=== PATIENT | female | born 1995 | race Caucasian/White ===

== ENCOUNTER 2019-09-02 21:10 | Observation (INO) | payer MEDICAID, SELFPAY ==
[2019-09-02 21:14] VITALS: BP 110/63; PULSE 128; RESP 17; TEMP 37.7; O2SAT 96; BMI 18.8
--- NOTE | 2019-09-02 21:23 | CTR_ITS ---
PROCEDURE INFORMATION: Exam: CT Abdomen And Pelvis With Contrast Exam date and time: 09/02/2019 11:15 PM Age: 24 years old Clinical indication: Abdominal pain; Generalized TECHNIQUE: Imaging protocol: Computed tomography of the abdomen and pelvis with intravenous contrast. Radiation optimization: All CT scans at this facility use at least one of these dose optimization techniques: automated exposure control; mA and/or kV adjustment per patient size (includes targeted exams where dose is matched to clinical indication); or iterative reconstruction. Contrast material: OMNI 300; Contrast volume: 75 ml; Contrast route: INTRAVENOUS (IV); COMPARISON: CT abdomen pelvis w con* [id number] 12/14/2018 4:40 PM RADIATION DOSE METRICS: Total DLP (mGy-cm): 562.81 FINDINGS: Lungs: The lung bases are clear. Liver: Unremarkable. Gallbladder and bile ducts: Prior cholecystectomy, no significant biliary tree dilation. Pancreas: Unremarkable. Spleen: Unremarkable. Adrenals: Unremarkable. Kidneys and ureters: Unremarkable. Stomach and bowel: There are no CT findings to strongly suggest diverticulitis. Appendix: The appendix is possibly identified, and there are no suspicious findings for appendicitis. No pericecal inflammatory changes are seen. Intraperitoneal space: No free air, ascites, or bowel distention. Vasculature: No evidence for abdominal aortic aneurysm. Lymph nodes: No retroperitoneal adenopathy. Bladder: Unremarkable as visualized. Reproductive: Essentially unremarkable for age. Bones/joints: No significant acute finding. Soft tissues: No significant acute finding. CT/CT abdomen pelvis w con* [id number] IMPRESSION: 1. No free air or bowel distention. 2. No CT findings to suggest appendicitis. 3. Other findings discussed above. Radiation Dose CTDIVOL = (mGy): DLP = 562.81 (mGy-cm)
--- NOTE | 2019-09-02 21:23 | CTR_ITS ---
PROCEDURE INFORMATION: Exam: CT Head Without Contrast Exam date and time: 09/02/2019 11:15 PM Age: 24 years old Clinical indication: Altered mental status/memory loss; Other: AMS; Additional info: AMS - PT unable to hold still during exam best images possible TECHNIQUE: Imaging protocol: Computed tomography of the head without contrast. Radiation optimization: All CT scans at this facility use at least one of these dose optimization techniques: automated exposure control; mA and/or kV adjustment per patient size (includes targeted exams where dose is matched to clinical indication); or iterative reconstruction. COMPARISON: No relevant prior studies available. RADIATION DOSE METRICS: Total DLP (mGy-cm): 1611.14 FINDINGS: Brain: Moderate right and mild left cerebral encephalomalacia. Ventricles: Ex vacuo dilatation of the occipital horn of the right lateral ventricle. No hydrocephalus. Bones/joints: No acute fracture. Sinuses: Unremarkable. No acute sinusitis. Mastoid air cells: No significant mastoid effusion. Soft tissues: Unremarkable. CT/CT head wo con* [id number] IMPRESSION: Moderate right and mild left cerebral encephalomalacia. Radiation Dose CTDIVOL = (mGy): DLP = 1611.14 (mGy-cm)
[2019-09-02] MEDS: haloperidol inj 5 mg/mL INJ 1 mL IM (21:36)
[2019-09-02] MEDS: sodium chloride 0.9% 1,000 ML 999 ML IV (22:53)
[2019-09-02] MEDS: morphine 4 mg/mL SDV 1 mL IVP (22:55)
[2019-09-02 22:58] VITALS: BP 92/56; PULSE 84; RESP 18; O2SAT 95
[2019-09-02 23:00] LABS: Basophils % 0.1 %; Hematocrit 33.3 % (37.0-47.0); Hemoglobin 11.1 g/dL (11.5-15.3); Lymphocytes % 9.6 %; Mean Corpuscular HGB Conc 33.3 g/dL (30.0-36.0); Mean Corpuscular Hemoglobin 30.7 pg (28.0-34.0); Monocytes # 0.8 10^3/uL (0.2-0.9); Monocytes % 8.1 %; Neutrophils # 8.23 10^3/uL (1.8-7.7); Nucleated Red Blood Cells % 0 %; Platelet Count 237 10^3/cmm (130-400); Red Blood Count 3.62 10^6/uL (4.1-5.3)
[2019-09-02 23:08] LABS: HCG, Serum Qual Negative (Negative)
[2019-09-02 23:13] LABS: Lactic Sepsis W/Reflex 1.9 mmol/L (0.5-2.2)
[2019-09-02 23:14] LABS: Alanine Aminotransferase 32 U/L (0-33); Albumin Level 4.2 g/dL (3.5-5.2); Alkaline Phosphatase 59 IU/L (35-105); Anion Gap 15.1 (5-19); Aspartate Amino Transferase 71 U/L (0-32); Blood Urea Nitrogen 10 mg/dL (6-20); Calcium 9.2 mg/dL (8.5-10.5); Carbon Dioxide 25 mmol/L (22-29); Chloride 98 mmol/L (98-107); Globulin 2.4 g/dL (1.3-4.6); Glomerular Filtration Rate 89.7 mL/min (90-130); Glucose 98 mg/dL (65-115); Lipase 13 U/L (13-60); Osmolality Calculated 276 mOsm/kg (285-295); Potassium 3.1 mmol/L (3.5-5.1); Sodium 135 mmol/L (136-145); Total Bilirubin 0.3 mg/dL (0.15-1.2); Total Protein 6.6 g/dL (6.6-8.7)
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
[2019-09-02 23:38] LABS: Creatine Phosphokinase 7818 U/L (26-192)
[2019-09-02] MEDS: iohexol 300 mg/mL 100 mL Btl IV (23:47)
--- NOTE | 2019-09-02 23:53 | PC.NURSE ---
Pt. to CT and back, via stretcher.
[2019-09-03] VITALS (8 sets, daily range): BP systolic 96–122; BP diastolic 53–66; PULSE 71–128; RESP 16–20; TEMP 36.6–37.1; O2SAT 93–98
[2019-09-03 00:15] LABS: Magnesium 1.7 mg/dL (1.7-2.3)
--- NOTE | 2019-09-03 01:17 | XR_ITS ---
WS: [id number] Portable AP upright chest, 09/03/2019 Clinical Data: ams Comparison: Portable chest, 10/03/2015. Findings: No nodules, masses or effusions are seen. The heart is normal. The pulmonary vascularity is not increased. No pneumonia or pneumothorax is seen. The patient's chin obscures detail over the ap ices. XR/XR chest 1V portable [id number] Impression: Negative chest.
[2019-09-03] MEDS: sodium chloride 0.9% 1,000 ML 100 ML IV (02:21)
[2019-09-03] MEDS: potassium chloride premix 40 MEQ/100 ML PREMIX 25 MEQ IV (02:22)
[2019-09-03] MEDS: haloperidol inj 5 mg/mL INJ 1 mL 2.5 MG IM ×2 (02:23→02:24)
[2019-09-03] MEDS: LORazepam 2 mg/mL INJ 1 mL 1 MG IVP (02:24)
[2019-09-03 03:04] LABS: Acetaminophen < 5.0 ug/mL (10-30); Alcohol Level < 10 mg/dL (0-10); Salicylate < 0.3 mg/dL (3-10)
[2019-09-03 03:29] LABS: Bacteria Urine 1+; Bilirubin Urine Neg (NEGATIVE); Blood Urine Neg (Negative); Glucose Urine UA Norm (Normal); Ketones Urine 1+ (Negative); Leukocyte Esterase Urine Negative (Negative); Nitrate Urine Negative (Negative); Protein Urine Neg (Negative); RBC Urine RARE /hpf (0-2); Squamous Epithelial Cell Urine 0-4 (0-5); Urine Appearance Clear (CLEAR); Urine Color Yellow (Yellow); Urobilinogen Urine Norm (Negative); WBC Urine 0-4 /hpf (0-5); pH Urine 6.5 (5-7)
[2019-09-03 03:31] LABS: Amphetamines Screen Urine Negative (Negative); Barbiturates Screen Urine Negative (Negative); Benzodiazepines Screen Urine Negative (Negative); Cocaine Screen Urine Negative (Negative); Opiate Screen Urine Positive (Negative); PCP Screen Urine Negative (Negative); THC Screen Urine Positive (Negative)
[2019-09-03] MEDS: sodium chloride 0.9% 1,000 ML 999 ML IV (05:00)
[2019-09-03] MEDS: sodium chloride 0.9% 1,000 ML 150 ML IV ×2 (06:32→13:26)
[2019-09-03] MEDS: haloperidol inj 5 mg/mL INJ 1 mL IM (08:49)
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
[2019-09-03] MEDS: ziprasidone 20 mg/mL SDV 10 MG IM (09:19)
--- NOTE | 2019-09-03 10:15 | PC.CHAP ---
Pastoral Care Encounter/Spiritual Assessment Type of Contact [] Declined industrial maintenance mechanic visit [] Patient/Family/Request visit [] Outpatient visit [] Follow-up visit [] Physician referral [] Code/Alert [x] Routine visit [] Staff referral [] Actively dying [] Patient sleeping [] Family support [] [] Out of room [] Palliative care [] [] Receiving care in room [] Pre-surgical visit [] Trauma [] Long length of stay [] ICU visit [] Other: Relational/Emotional Strength [] Patient feels connected with others/family/visitors/staff [] Distress [] Loneliness/isolation [] Abandonment Spirituality of Patient [] Person of Soni [] Attends Adventism of their Soni [] Believes in Prayer [] Reads Bible or Uatsdin materials [] There are Spiritual issues to be addressed Saxophone Assembler Interventions [] Prayer [] Active listening [] Non-anxious presence [] Spiritual/emotional support [] Crisis/trauma care [] Spiritual counseling [] Bereavement support [] Provided bereavement packet [] Provided Bible/devotional materials [] Provided toy/stuffed animal, coloring book to patient or family member [] Provided Communion [] Anointing/[place] [] Salvation [x] Completed spiritual assessment [] Other: Impact on Illness or Injury [] Angry [] Fearful [] Anxious [] Often cries [] Exhaustion [] Unable to work [] Unable to attend taoist [] Unable to walk/stand [] Unable to read [] Unable to drive [] Unable to eat/drink [] Unable to sleep [] Unable to be with family [] Patient intubated [] Other: Summary Patient has mother setting with her to assist. Handicapped, screamer. Staff trying to calm her Time spent with patient
[2019-09-03 10:18] LABS: Basophils % 0.1 %; Eosinophils % 0.1 %; Hematocrit 29.8 % (37.0-47.0); Hemoglobin 9.6 g/dL (11.5-15.3); Lymphocytes # 1.1 10^3/uL (0.8-4.8); Lymphocytes % 14.4 %; Mean Corpuscular HGB Conc 32.2 g/dL (30.0-36.0); Mean Corpuscular Hemoglobin 30.9 pg (28.0-34.0); Mean Corpuscular Volume 95.8 fL (81-99); Mean Platelet Volume 9.8 fL (7.4-10.4); Monocytes # 0.5 10^3/uL (0.2-0.9); Monocytes % 6.8 %; Neutrophils # 5.77 10^3/uL (1.8-7.7); Neutrophils % 78.3 %; Nucleated Red Blood Cells % 0 %; Platelet Count 193 10^3/cmm (130-400); Red Blood Count 3.11 10^6/uL (4.1-5.3); Red Cell Distribution Width 12.3 % (12.1-15.1); White Blood Count 7.4 10^3/uL (4.0-10.0)
[2019-09-03 10:54] LABS: Anion Gap 12.5 (5-19); Blood Urea Nitrogen 4 mg/dL (6-20); CKMB 4.6 ng/mL (0-5.34); Calcium 8.1 mg/dL (8.5-10.5); Carbon Dioxide 23 mmol/L (22-29); Chloride 106 mmol/L (98-107); Glomerular Filtration Rate 154.3 mL/min (90-130); Glucose 104 mg/dL (65-115); Osmolality Calculated 282 mOsm/kg (285-295); Potassium 3.5 mmol/L (3.5-5.1); Sodium 138 mmol/L (136-145)
[2019-09-03 11:28] LABS: Creatine Phosphokinase 8848 U/L (26-192)
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
[2019-09-03] MEDS: naltrexone hcl 50 mg Tablet PO ×2 (16:37→21:56)
[2019-09-03] MEDS: scopolamine 1.5 Patch 1 PATCH TRANSDERMA (16:37)
[2019-09-03] MEDS: lamoTRIgine 100 mg Tablet 150 MG PO (17:56)
[2019-09-03] MEDS: doxycycline 100 mg Tablet PO (17:56)
[2019-09-03] MEDS: docusate sodium 100 mg Capsule PO (17:57)
--- NOTE | 2019-09-03 19:26 | PC.NURSE ---
Medication reconciliation performed. Patient's mother reports using OTC CBD oil as needed. This wasn't found in the medications to add to the med profile. I spoke with Dr. Barlow and informed her of this. She verbalizes understanding and requests for patient's mother to bring in medications for administration if needed and further review. I spoke with patient's mother and informed her of this. She states she will have her family bring the medications to the hospital for review.
--- NOTE | 2019-09-03 21:45 | PC.NURSE ---
PATIENT WAS VISIBLY UPSET, SCREAMING, KICKING AND TRYING TO BITE, MOM ASKED TO NOT DO VITALS AT THIS TIME DUE TO HER ALREADY BEING UPSET AND HER AFRAID IT WOULD MAKE IT WORSE.
[2019-09-04] VITALS: BP 98/62; PULSE 71; RESP 16; TEMP 37; O2SAT 98
[2019-09-04] MEDS: sodium chloride 0.9% 1,000 ML 150 ML IV (03:31)
[2019-09-04 04:00] VITALS: BP 101/66; PULSE 74; RESP 17; TEMP 37.2; O2SAT 98
[2019-09-04 07:13] VITALS: BP 122/70
[2019-09-04 07:15] VITALS: BP 101/66; PULSE 74; RESP 17; TEMP 37.2
[2019-09-04 07:27] LABS: Blood Urea Nitrogen 3 mg/dL (6-20); Calcium 8.9 mg/dL (8.5-10.5); Carbon Dioxide 24 mmol/L (22-29); Chloride 109 mmol/L (98-107); Glomerular Filtration Rate 154.3 mL/min (90-130); Glucose 92 mg/dL (65-115); Osmolality Calculated 295 mOsm/kg (285-295); Sodium 145 mmol/L (136-145)
[2019-09-04 07:30] LABS: CKMB 2.9 ng/mL (0-5.34)
[2019-09-04 07:50] LABS: Basophils % 0.2 %; Eosinophils % 0.7 %; Hematocrit 33.7 % (37.0-47.0); Hemoglobin 10.9 g/dL (11.5-15.3); Lymphocytes # 2.5 10^3/uL (0.8-4.8); Lymphocytes % 46.9 %; Mean Corpuscular HGB Conc 32.3 g/dL (30.0-36.0); Mean Corpuscular Hemoglobin 30.8 pg (28.0-34.0); Mean Corpuscular Volume 95.2 fL (81-99); Mean Platelet Volume 10.4 fL (7.4-10.4); Monocytes # 0.4 10^3/uL (0.2-0.9); Monocytes % 7.4 %; Neutrophils # 2.39 10^3/uL (1.8-7.7); Neutrophils % 44.6 %; Nucleated Red Blood Cells % 0 %; Platelet Count 227 10^3/cmm (130-400); Red Blood Count 3.54 10^6/uL (4.1-5.3); Red Cell Distribution Width 12.3 % (12.1-15.1); White Blood Count 5.4 10^3/uL (4.0-10.0)
[2019-09-04] MEDS: docusate sodium 100 mg Capsule PO ×2 (07:51)
[2019-09-04] MEDS: paliperidone ER 3 mg Tablet 9 MG PO (07:53)
[2019-09-04] MEDS: polyethylene glycol 3350 Pkt 17 gm PO (07:53)
[2019-09-04] MEDS: doxycycline 100 mg Tablet PO (07:54)
[2019-09-04] MEDS: naltrexone hcl 50 mg Tablet PO (07:54)
[2019-09-04 08:02] LABS: Creatine Phosphokinase 6888 U/L (26-192)
--- NOTE | 2019-09-04 09:59 | PC.CHAP ---
Pastoral Care Encounter/Spiritual Assessment Type of Contact [] Declined architecture consultant visit [] Patient/Family/Request visit [] Outpatient visit [] Follow-up visit [] Physician referral [] Code/Alert [] Routine visit [] Staff referral [] Actively dying [] Patient sleeping [] Family support [] [] Out of room [] Palliative care [] [] Receiving care in room [] Pre-surgical visit [] Trauma [] Long length of stay [] ICU visit [X] Other:COVID PT. SKIPPED VISIT PER DIRECTIVE Relational/Emotional Strength [] Patient feels connected with others/family/visitors/staff [] Distress [] Loneliness/isolation [] Abandonment Spirituality of Patient [] Person of Soni [] Attends Pentecostal of their Soni [] Believes in Prayer [] Reads Bible or Jainism materials [] There are Spiritual issues to be addressed Nurse Healthcare Manager Interventions [] Prayer [] Active listening [] Non-anxious presence [] Spiritual/emotional support [] Crisis/trauma care [] Spiritual counseling [] Bereavement support [] Provided bereavement packet [] Provided Bible/devotional materials [] Provided toy/stuffed animal, coloring book to patient or family member [] Provided Communion [] Anointing/[place] [] Salvation [] Completed spiritual assessment [] Other: Impact on Illness or Injury [] Angry [] Fearful [] Anxious [] Often cries [] Exhaustion [] Unable to work [] Unable to attend caodaism [] Unable to walk/stand [] Unable to read [] Unable to drive [] Unable to eat/drink [] Unable to sleep [] Unable to be with family [] Patient intubated [] Other: Summary Time spent with patient
--- NOTE | 2019-09-04 11:25 | PM.DCS ---
Discharge Providers Date of Admission: 09/03/19 03:46 Date of Discharge: September 04, 2019 Attending Provider at Admission: Noé Luna Attending Provider at Discharge: Margaret Barlow DO Diagnoses at Discharge Discharge Diagnosis (1) Traumatic brain injury: Status: Acute (2) Seizures: Status: Acute (3) Agitation: Status: Acute (4) Severe intellectual disability: Status: Acute Reason for Visit Reason for Visit: ams/ combative/ possible dehydration Hospital Course Hospital Course: Patient was admitted for acute combativeness and concern for elevated CK. She was monitored on observation and given IVF. She did require Geodon and Haldol which helped with her agitation. She received IVF and her CK trended down, however it remained significantly elevated. However patient is asymptomatic and no concern for muscle aches or pain. Believe CK elevation is due to patients physical demands over the past couple of days and requiring restraints at home to ensure that patient did not injure herself or anyone else. Patient was up and walking around the room listening to her music on date of discharge and mother noted that patient was at her baseline. Discussed the elevation in CK and the recommendation to have it rechecked in 7 days. Patient tolerating regular diet with no abdominal pain, no nausea. Discussed follow up plans and plan for discharge today. Physical Exam Const: COMMON NORMALS: no acute distress EXAM LIMITATIONS: behavioral limitations GENERAL APPEARANCE: cooperative and comfortable HENMT: COMMON NORMALS: atraumatic HEAD & SCALP: atraumatic Chest: COMMONS NORMALS: normal inspection of the chest Resp: COMMON NORMALS: normal respiratory effort, No retractions and No use of accessory muscles EFFORT & INSPECTION: Yes symmetric chest movement and No respiratory distress Cardio: OTHER: normal peripheral perfusion Psych: OTHER: Awake and ambulating through the room, smiling and listening to music. Chronic L Erb's palsy Discharge Data Data Completed and Pending: Completed Studies During Hospitalization Category Date Time Status CT abdomen pelvis w con* [id number] Stat Cat Scan 09/02/19 21:[address] head wo con* [id number] Stat Cat Scan 09/02/19 21:23 Completed XR chest 1V sharad ble [id number] Stat Exams 09/03/19 01:17 Completed Pending at discharge Category Date Time Status Blood Culture Sta t Lab 09/02/19 22:38 Results Lamotrigine (Lami ctal) Level Routin e Lab 09/03/19 10:07 Received Miscellaneous Angelica t Routine Lab 09/03/19 03:09 Received Labs from last 24 hours 09/04/19 09/04/19 09/04/19 06:47 06:47 06:47 WBC 5.4 RBC 3.54 L Hgb 10.9 L Hct 33.7 L MCV 95.2 MCH 30.8 MCHC 32.3 RDW 12.3 Plt Count 227 MPV 10.4 Neut % (Auto) 44.6 Lymph % (Auto) 46.9 [place] % (Auto) 7.4 Eos % (Auto) 0.7 Baso % (Auto) 0.2 Neut # (Auto) 2.39 Lymph # (Auto) 2.5 [place] # (Auto) 0.4 Eos # (Auto) 0.0 Baso # (Auto) 0.0 Nucleated RBC % (a uto) 0 Nucleated RBCs # 0.0 Sodium 145 Potassium 4.0 Chloride 109 H Carbon Dioxide 24 Anion Gap 16.0 BUN 3 L Creatinine 0.5 GFR Calculation 154.3 H Glucose 92 Calculated Osmolal ity 295 Calcium 8.9 Creatine Kinase 6888 H* CK-MB (CK-2) 2.9 CK-MB (CK-2) Rel I ndex 09/03/19 10:07 WBC RBC Hgb Hct MCV MCH MCHC RDW Plt Count MPV Neut % (Auto) Lymph % (Auto) [place] % (Auto) Eos % (Auto) Baso % (Auto) Neut # (Auto) Lymph # (Auto) [place] # (Auto) Eos # (Auto) Baso # (Auto) Nucleated RBC % (a uto) Nucleated RBCs # Sodium Potassium Chloride Carbon Dioxide Anion Gap BUN Creatinine GFR Calculation Glucose Calculated Osmolal ity Calcium Creatine Kinase 8848 H* CK-MB (CK-2) CK-MB (CK-2) Rel I ndex Vitals: Last Vital Signs Temp 98.9 F 09/04/19 07:15 Pulse 74 09/04/19 07:15 Resp 17 09/04/19 07:15 BP 101/66 09/04/19 07:15 Pulse Ox 98 09/04/19 04:00 Discharge Plan Discharge Patient Disposition: Home, Self-Care Condition: Stable Prescriptions: Continued buspirone 15 mg Tablet 15 mg PO TID RF: 0 risperidone 0.5 mg Tablet,Disintegrating 0.5 mg PO BID PRN (Reason: Agitation and Aggression) RF: 0 sodium phosphates 19-7 gram/118 mL Enema 133 ml ID DAILY PRN (Reason: Constipation) RF: 0 doxycycline hyclate 100 mg Capsule 100 mg PO BID RF: 0 oxcarbazepine 300 mg/5 mL (60 mg/mL) Suspension 600 mg PO BID RF: 0 lamotrigine 150 mg Tablet 150 mg PO BID RF: 0 vortioxetine 10 mg Tablet 10 mg PO DAILY RF: 0 lactulose 10 gram/15 mL Solution 15 ml PO QID PRN (Reason: Constipation) RF: 0 ClearLax 17 gram/dose Powder 17 g PO DAILY RF: 0 Cyclafem 1/35 (28) 1-35 mg-mcg Tablet 1 tab PO DAILY RF: 0 ondansetron 8 mg Tablet,Disintegrating 8 mg PO Q8H PRN (Reason: Nausea, Vomiting) RF: 0 naltrexone 50 mg Tablet 50 mg PO TID RF: 0 paliperidone 9 mg tablet extended release 24hr 9 mg PO DAILY RF: 0 lubiprostone 8 mcg Capsule 8 mcg PO BID RF: 0 Deplin (algal oil) 15-90.314 mg Capsule 1 cap PO DAILY RF: 0 scopolamine base 1 mg over 3 days Patch 3 Day 1 patch TRANSDERMAL Q3D RF: 0 docusate sodium 100 mg Capsule 100 mg PO BID RF: 0 Diastat 2.5 mg Kit 10 mg ID Q12H PRN (Reason: Seizures) RF: 0 cetirizine 10 mg Tablet 10 mg PO DAILY PRN (Reason: Rhinitis) RF: 0 Midol Complete 500-60-15 mg Tablet 2 tab PO Q6H PRN (Reason: Menstrual Cramping) RF: 0 Discharge Orders: Discharge Order (Routine); Ordered 09/04/19 Ordered By: Margaret Barlow Referrals: Jeremy Serra [Referring] - 1-3 days (Will need recheck CK and BMP in 5-7 days. Asymptomatic elevation of CK, IVF and observation) Discharge Diet: Advance as tolerated and Usual diet Discharge Activity: Increase activity as tolerated Activity Restrictions/Additional Instructions: Asymptomatic elevation in Creatinine Kinase. No changes or adjustments at this time. Please continue to encourage adequate water intake. If any type of muscle pain is reported call your physician or bring patient in for further evaluation. Would recommend repeat CK and chemistry panel, blood work, in 5-[address] Serra. Continue to increase activity as tolerated. Call your physician or present to the ED for any acute illness or concerns. Discharge Attestations Time Spent in Discharge Care*: greater than 30 min Specific Discharge Activities: Specific discharge activities: educating and/or supporting family/caregiver and documenting/other paperwork Quality Metrics Clinical Quality Measures During this hospital stay, did patient experience: None Coding Level of Care Code Acute Survey Statistician for Nirav Fwd Diagnoses Traumatic brain injury S06.9X9A Seizures R56.9 Agitation R45.1 Severe intellectual disability F72
[2019-09-04 12:00] VITALS: BP 101/66; PULSE 74; RESP 17; TEMP 37.2
[2019-09-04 13:10] VITALS: BP 101/66; PULSE 74; RESP 17; TEMP 37.2
[2019-09-07 21:25] LABS: Lamotrigine (Lamictal) Level 4.4 mcg/mL (4.0-18.0)
== END 2019-09-04 13:11 | disposition home or self-care (01) ==
LOC: ER 21:29 → MEDSURG 09-03 03:55
PROVIDERS: Emergency Medicine; Admitting Provider Internal Medicine; Visit Provider Family Medicine
DX: R74.8 Abnormal levels of other serum enzymes (principal); R45.1 Restlessness and agitation; R56.9 Unspecified convulsions; Z87.820 Personal history of traumatic brain injury; F72 Severe intellectual disabilities
CPT/HCPCS: 12345; 36415; 70450; 71045; 74177; 80048; 80053; 80175; 80306; 80307; 80349; 81001; 82550; 82553; 83605; 83690; 83735; 84703; 85025; 87040; 96361; 96365; 96366; 96372; 96375; 99284; 99285; G0378; J1630; J2060; J2270; J3480; J3486; J7030; Q9967

== ENCOUNTER 2019-09-08 22:17 | Emergency (ER) | payer MEDICAID, SELFPAY ==
[2019-09-08 22:33] VITALS: BMI 19.8
[2019-09-08 23:01] VITALS: BP 134/72; PULSE 88; RESP 22; O2SAT 97
--- NOTE | 2019-09-08 23:23 | ED_ITS ---
HPI - Nausea/Vomiting/Diarrhea General: Chief complaint: Nausea/Vomiting/Diarrhea Stated complaint: DEHYDRATION Time Seen by Provider: 09/08/19 22:33 Source: family and EMS Mode of arrival: EMS Limitations: physical limitation History of Present Illness: HPI Narrative: 24-year-old female with a history of special needs who is here with a caregiver who is giving all history. Chandan martinez has had issues with vomiting the past and caregiver states she has had nausea and vomiting over the last 2 to 3 days. She states she is also had diarrhea. She has had decreased urination and she believes she is dehydrated. Patient's been afebrile at home and has not complained to act like she been in pain per caregiver. Denies any worsening improving factors. Associated nausea: Yes Associated symtoms: Reports nausea; Denies chest pain, dysuria or headache(s) Review of Systems Const: Denies: fever(s), chills, body aches or change in appetite Eyes: Denies: blurry vision or eye discomfort ENMT: Denies: throat pain or dental pain Card: Denies: chest pain Resp: Denies: dyspnea GI: Reports: nausea, vomiting and diarrhea : Denies: dysuria Musc: Denies: neck pain or back pain Skin/Breast: Denies: rash Neuro: Denies: headache(s) Psych: Denies: depression Daniele/Lymph: Denies: easy bruising All/Imm: Denies: urticaria PFSH ED PFSH: Medical History (Updated 09/09/19 @ 02:27 by Freddy Gallegos MD) Developmental delay Seizures Traumatic brain injury Surgical History (Updated 09/03/19 @ 09:43 by Margaret Barlow DO) History of laparoscopic cholecystectomy Physical Exam Const: COMMON NORMALS: no acute distress and healthy appearing HENMT: COMMON NORMALS: normocephalic and atraumatic HEAD & SCALP: normocephalic and atraumatic Eye: COMMON NORMALS: Equal, round and reactive pupils present and EOMs intact bilaterally PUPIL: Yes Equal, round and reactive pupils present Neck/C-Spine: COMMON NORMALS: full ROM and supple Chest: COMMONS NORMALS: normal inspection of the chest and normal palpation of entire chest wall Resp: COMMON NORMALS: normal respiratory effort, No retractions, No use of accessory muscles and clear to auscultation bilaterally AUSCULTATION: clear to auscultation bilaterally Cardio: COMMON NORMALS: regular rate, regular rhythm and No murmurs present (Cardio) RATE: regular rate RHYTHM: regular rhythm GI: COMMON NORMALS: Normal to inspection, nondistended, normoactive bowel sounds present, Soft to palpation, non-tender and no masses PALPATION: Yes Soft to palpation Extremity: COMMON NORMALS: normal to inspection and full ROM Neuro: COMMON NORMALS: moves all extremities and no focal motor deficits Psych: COMMON NORMALS: mental status grossly normal, Normal thought process present and cooperative THOUGHT PROCESS: Normal thought process present Skin: COMMON NORMALS: no rashes or lesions noted and no wounds GENERAL SKIN EXAM: no rashes or lesions noted MDM - Nausea/Vomiting/Diarrhea MDM Narrative: Medical decision making narrative: Patient presents with vomiting along with dehydration. Patient lab work here is normal and she is stable for discharge. Patient has Zofran at home and patient was given IV fluids here patient is stable for discharge and return if worsening. They understand and agree to plan. Lab Data: Labs: Lab Results 09/08/19 09/08/19 09/09/19 Range/Units 01:12 01:18 01:10 WBC 4.4 (4.0-10.0) 10^3/ uL RBC 3.25 L (4.1-5.3) 10^6/u L Hgb 10.1 L (11.5-15.3) g/dL Hct 31.0 L (37.0-47.0) % MCV 95.4 (81-99) fL MCH 31.1 (28.0-34.0) pg MCHC 32.6 (30.0-36.0) g/dL RDW 12.4 (12.1-15.1) % Plt Count 300 (130-400) 10^3/c mm MPV 9.9 (7.4-10.4) fL Neut % (Auto) 61.7 % Lymph % (Auto) 33.3 % [place] % (Auto) 4.6 % Eos % (Auto) 0.2 % Baso % (Auto) 0.2 % Neut # (Auto) 2.68 (1.8-7.7) 10^3/u L Lymph # (Auto) 1.5 (0.8-4.8) 10^3/u L [place] # (Auto) 0.2 (0.2-0.9) 10^3/u L Eos # (Auto) 0.0 (0.0-0.8) 10^3/u L Baso # (Auto) 0.0 (0.0-0.1) 10^3/u L Nucleated RBC % (a uto) 0 % Nucleated RBCs # 0.0 /100WBC Sodium 136 (136-145) mmol/L Potassium 4.1 (3.5-5.1) mmol/L Chloride 101 (98-107) mmol/L Carbon Dioxide 26 (22-29) mmol/L Anion Gap 13.1 (5-19) BUN 5 L (6-20) mg/dL Creatinine 0.6 (0.5-0.9) mg/dL GFR Calculation 125.0 (90-130) mL/min Glucose 106 (65-115) mg/dL Calculated Osmolal ity 278 L (285-295) mOsm/k g Calcium 8.6 (8.5-10.5) mg/dL Total Bilirubin 0.3 (0.15-1.2) mg/dL AST 30 (0-32) U/L ALT 35 H (0-33) U/L Alkaline Phosphata se 57 (35-105) IU/L Creatine Kinase 687 H* (26-192) U/L Total Protein 6.8 (6.6-8.7) g/dL Albumin 4.0 (3.5-5.2) g/dL Globulin 2.8 (1.3-4.6) g/dL HCG, Qual Negative (Negative) Urine Color (Yellow) Urine Appearance (CLEAR) Urine pH (5-7) Ur Specific Gravit y (1.005-1.030) Urine Protein (Negative) Urine Glucose (UA) (Normal) Urine Ketones (Negative) Urine Blood (Negative) Urine Nitrate (Negative) Urine Bilirubin (NEGATIVE) Urine Urobilinogen (Negative) mg/dL Ur Leukocyte [place]yan[place] ase (Negative) Urine RBC (0-2) /hpf Urine WBC (0-5) /hpf Ur Squamous Epith Cells (0-5) Amorphous Sediment Urine Bacteria (NONE) 09/09/19 Range/Units 01:10 WBC (4.0-10.0) 10^3/ uL RBC (4.1-5.3) 10^6/u L Hgb (11.5-15.3) g/dL Hct (37.0-47.0) % MCV (81-99) fL MCH (28.0-34.0) pg MCHC (30.0-36.0) g/dL RDW (12.1-15.1) % Plt Count (130-400) 10^3/c mm MPV (7.4-10.4) fL Neut % (Auto) % Lymph % (Auto) % [place] % (Auto) % Eos % (Auto) % Baso % (Auto) % Neut # (Auto) (1.8-7.7) 10^3/u L Lymph # (Auto) (0.8-4.8) 10^3/u L [place] # (Auto) (0.2-0.9) 10^3/u L Eos # (Auto) (0.0-0.8) 10^3/u L Baso # (Auto) (0.0-0.1) 10^3/u L Nucleated RBC % (a uto) % Nucleated RBCs # /100WBC Sodium (136-145) mmol/L Potassium (3.5-5.1) mmol/L Chloride (98-107) mmol/L Carbon Dioxide (22-29) mmol/L Anion Gap (5-19) BUN (6-20) mg/dL Creatinine (0.5-0.9) mg/dL GFR Calculation (90-130) mL/min Glucose (65-115) mg/dL Calculated Osmolal ity (285-295) mOsm/k g Calcium (8.5-10.5) mg/dL Total Bilirubin (0.15-1.2) mg/dL AST (0-32) U/L ALT (0-33) U/L Alkaline Phosphata se (35-105) IU/L Creatine Kinase (26-192) U/L Total Protein (6.6-8.7) g/dL Albumin (3.5-5.2) g/dL Globulin (1.3-4.6) g/dL HCG, Qual (Negative) Urine Color Yellow (Yellow) Urine Appearance Clear (CLEAR) Urine pH 8 H (5-7) Ur Specific Gravit y 1.010 (1.005-1.030) Urine Protein Neg (Negative) Urine Glucose (UA) Norm (Normal) Urine Ketones 1+ H (Negative) Urine Blood Neg (Negative) Urine Nitrate Negative (Negative) Urine Bilirubin Neg (NEGATIVE) Urine Urobilinogen Norm (Negative) mg/dL Ur Leukocyte [place] ase Negative (Negative) Urine RBC None (0-2) /hpf Urine WBC None (0-5) /hpf Ur Squamous Epith Cells None (0-5) Amorphous Sediment Not Reportable Urine Bacteria None (NONE) Discharge Plan Discharge Patient Disposition: Home, Self-Care Clinical Impression: Vomiting Qualifiers: Vomiting type: unspecified Vomiting Intractability: non-intractable Nausea presence: with nausea Qualified Code(s): R11.2 - Nausea with vomiting, unspecified Condition: Stable Prescriptions: No Action buspirone 15 mg Tablet 15 mg PO TID RF: 0 risperidone 0.5 mg Tablet,Disintegrating 0.5 mg PO BID PRN (Reason: Agitation and Aggression) RF: 0 sodium phosphates 19-7 gram/118 mL Enema 133 ml ME DAILY PRN (Reason: Constipation) RF: 0 doxycycline hyclate 100 mg Capsule 100 mg PO BID RF: 0 oxcarbazepine 300 mg/5 mL (60 mg/mL) Suspension 600 mg PO BID RF: 0 lamotrigine 150 mg Tablet 150 mg PO BID RF: 0 vortioxetine 10 mg Tablet 10 mg PO DAILY RF: 0 lactulose 10 gram/15 mL Solution 15 ml PO QID PRN (Reason: Constipation) RF: 0 ClearLax 17 gram/dose Powder 17 g PO DAILY RF: 0 Cyclafem 1/35 (28) 1-35 mg-mcg Tablet 1 tab PO DAILY RF: 0 ondansetron 8 mg Tablet,Disintegrating 8 mg PO Q8H PRN (Reason: Nausea, Vomiting) RF: 0 naltrexone 50 mg Tablet 50 mg PO TID RF: 0 paliperidone 9 mg tablet extended release 24hr 9 mg PO DAILY RF: 0 lubiprostone 8 mcg Capsule 8 mcg PO BID RF: 0 Deplin (algal oil) 15-90.314 mg Capsule 1 cap PO DAILY RF: 0 scopolamine base 1 mg over 3 days Patch 3 Day 1 patch TRANSDERMAL Q3D RF: 0 docusate sodium 100 mg Capsule 100 mg PO BID RF: 0 Diastat 2.5 mg Kit 10 mg ME Q12H PRN (Reason: Seizures) RF: 0 cetirizine 10 mg Tablet 10 mg PO DAILY PRN (Reason: Rhinitis) RF: 0 Midol Complete 500-60-15 mg Tablet 2 tab PO Q6H PRN (Reason: Menstrual Cramping) RF: 0 Discharge Orders: Discharge Order (Routine); Ordered 09/09/19 Ordered By: Freddy Gallegos Discharge Diet: Advance as tolerated Discharge Activity: Resume usual activity Patient Instructions: Acute Nausea and Vomiting (ED) Coding Level of Care Code ED Engagement Lead for Erickg Fwd Exam Comprehensive
[2019-09-08] MEDS: LORazepam 2 mg/mL INJ 1 mL 0.5 MG IM (23:45)
[2019-09-08] MEDS: sodium chloride 0.9% 1,000 ML 999 ML IV (23:50)
[2019-09-09 01:48] LABS: Add Urine Microscopic? YES; Bilirubin Urine Neg (NEGATIVE); Blood Urine Neg (Negative); Glucose Urine UA Norm (Normal); HCG Qualitative Urine. Negative (Negative); Ketones Urine 1+ (Negative); Leukocyte Esterase Urine Negative (Negative); Nitrate Urine Negative (Negative); Protein Urine Neg (Negative); Urine Appearance Clear (CLEAR); Urine Color Yellow (Yellow); Urobilinogen Urine Norm (Negative); pH Urine 8 (5-7)
[2019-09-09 01:56] LABS: Alanine Aminotransferase 35 U/L (0-33); Alkaline Phosphatase 57 IU/L (35-105); Anion Gap 13.1 (5-19); Aspartate Amino Transferase 30 U/L (0-32); Blood Urea Nitrogen 5 mg/dL (6-20); Calcium 8.6 mg/dL (8.5-10.5); Carbon Dioxide 26 mmol/L (22-29); Chloride 101 mmol/L (98-107); Globulin 2.8 g/dL (1.3-4.6); Glucose 106 mg/dL (65-115); Osmolality Calculated 278 mOsm/kg (285-295); Potassium 4.1 mmol/L (3.5-5.1); Sodium 136 mmol/L (136-145); Total Bilirubin 0.3 mg/dL (0.15-1.2); Total Protein 6.8 g/dL (6.6-8.7)
[2019-09-09 01:57] LABS: Basophils % 0.2 %; Eosinophils % 0.2 %; Hemoglobin 10.1 g/dL (11.5-15.3); Lymphocytes # 1.5 10^3/uL (0.8-4.8); Lymphocytes % 33.3 %; Mean Corpuscular HGB Conc 32.6 g/dL (30.0-36.0); Mean Corpuscular Hemoglobin 31.1 pg (28.0-34.0); Mean Corpuscular Volume 95.4 fL (81-99); Mean Platelet Volume 9.9 fL (7.4-10.4); Monocytes # 0.2 10^3/uL (0.2-0.9); Monocytes % 4.6 %; Neutrophils # 2.68 10^3/uL (1.8-7.7); Neutrophils % 61.7 %; Nucleated Red Blood Cells % 0 %; Platelet Count 300 10^3/cmm (130-400); Red Blood Count 3.25 10^6/uL (4.1-5.3); Red Cell Distribution Width 12.4 % (12.1-15.1); White Blood Count 4.4 10^3/uL (4.0-10.0)
[2019-09-09 02:00] LABS: Creatine Phosphokinase 687 U/L (26-192)
[2019-09-09] MEDS: sodium chloride 0.9% 1,000 ML 999 ML IV (02:32)
--- NOTE | 2019-09-09 02:33 | PC.NURSE ---
per MD, cancel second IV fluid
[2019-09-09 02:45] VITALS: BP 120/66; PULSE 76; RESP 18; O2SAT 99
[2019-09-09 02:47] VITALS: BP 120/66; PULSE 70; RESP 16; O2SAT 99
== END 2019-09-09 03:12 | disposition home or self-care (01) ==
PROVIDERS: Emergency Provider Emergency Medicine
DX: R11.2 Nausea with vomiting, unspecified (principal)
CPT/HCPCS: 12345; 36415; 80053; 81001; 81003; 81025; 82550; 85025; 96360; 96372; 99282; 99283; J2060; J7030

== ENCOUNTER 2021-08-01 08:57 | Emergency (ER) | payer OTHER, MEDICAID, SELFPAY ==
--- NOTE | 2021-08-01 09:09 | W.ED.GENADLT ---
HPI - General Adult General: Chief complaint: Nausea/Vomiting/Diarrhea Stated complaint: decreased urine output,loss of appetite Time Seen by Provider: 08/01/21 09:04 Source: EMS Mode of arrival: EMS Limitations: altered mental status (severe intellectual delay/previous TBI) History of Present Illness: Patient is a 26-year-old female who presents to ED today via EMS with a report that she has not been eating or drinking much over the past 24 hours. EMS also reports that patient has had a decreased urine output. Patient has significant intellectual delays. She has a history of a previous TBI. She resides with her mother who is reportedly on the way to the ED. No history could be obtained from patient and all history is obtained from EMS personnel. Mother arrived shortly after and tells me she has been having issues getting patient to eat and drink much over the past week or so. She states patient ran a fever of 102 over a week ago but has been afebrile since. She states she has had a few episodes of vomiting over the past 3 to 4 days however states patient frequently has episodes of vomiting over the past several years. Patient's last urine output was 2 days ago. She did have a CMP performed by her PCP yesterday which was normal. Patient is incontinent and wears adult briefs. Patient has not had any URI symptoms/cough. No rash. Review of Systems General: Reports: ROS unobtainable due to medical condition and ROS unobtainable due to mental status [facility] ED PFSH: Medical History Developmental delay Seizures Traumatic brain injury Surgical History History of laparoscopic cholecystectomy Physical Exam Const: OTHER: patient is crying/sobbing at the time of my initial assessment; mother is reportedly on her way later patient is calm and listening to music; she is not able to converse with me; she does vocalize words/phrases but they are un-meaningful HENMT: COMMON NORMALS: normocephalic and atraumatic HEAD & SCALP: normal to inspection, normocephalic and atraumatic Resp: COMMON NORMALS: normal respiratory effort and clear to auscultation bilaterally AUSCULTATION: clear to auscultation bilaterally Cardio: COMMON NORMALS: regular rate and regular rhythm RATE: regular rate RHYTHM: regular rhythm GI: COMMON NORMALS: Soft to palpation INSPECTION: Yes normal to inspection AUSCULTATION: Yes normoactive bowel sounds PALPATION: Yes Soft to palpation Extremity: COMMON NORMALS: normal to inspection GENERAL: Yes normal exam except as noted OTHER: chronic extremity contracture Skin: COMMON NORMALS: no rashes or lesions noted GENERAL SKIN EXAM: no rashes or lesions noted Course Vital Signs: Vital signs: Vital Signs Temperature 97.8 F 08/01/21 09:39 Pulse Rate 101 H 08/01/21 10:14 Respiratory Rate 14 08/01/21 09:39 Blood Pressure 114/74 08/01/21 10:14 Pulse Oximetry 98 08/01/21 10:14 [facility] - General Adult Medical Decision Making Patient arrives afebrile. She was initially charted is tachycardic but during my examination heart rate is normal. She has a normal white count. Chemistry panel is unremarkable. UA is not overly suspicious for UTI however she does have 1+ leuks, 0-4 WBC, 1+ bacteria. We will go ahead and get urine culture. Mother feels comfortable delaying antibiotic therapy until culture returns. Mother has scopolamine patches and Zofran they can use for nausea at home. She states they will follow-up with her PCP on Friday for re-evaluation. Lab Data : 08/01/21 09:55 08/01/21 09:55 Laboratory Results WBC 3.1 10^3/uL (4.0-10.0) L 08/01/21 09:55 RBC 3.68 10^6/uL (4.1-5.3) L 08/01/21 09:55 Hgb 11.5 g/dL (11.5-15.3) 08/01/21 09:55 Hct 33.3 % (37.0-47.0) L 08/01/21 09:55 MCV 90.5 fl (81-99) 08/01/21 09:55 MCH 31.3 pg (28.0-34.0) 08/01/21 09:55 MCHC 34.5 g/dL (30.0-36.0) 08/01/21 09:55 RDW 12.8 % (12.1-15.1) 08/01/21 09:55 Plt Count 298 10^3/cmm (130-400) 08/01/21 09:55 MPV 9.4 fL (7.4-10.4) 08/01/21 09:55 Neut % (Auto) 54.3 % 08/01/21 09:55 Lymph % (Auto) 39.5 % 08/01/21 09:55 [place] % (Auto) 5.6 % 08/01/21 09:55 Eos % (Auto) 0.3 % 08/01/21 09:55 Baso % (Auto) 0.3 % 08/01/21 09:55 Neut # (Auto) 1.66 10^3/uL (1.8-7.7) L 08/01/21 09:55 Lymph # (Auto) 1.2 10^3/uL (0.8-4.8) 08/01/21 09:55 [place] # (Auto) 0.2 10^3/uL (0.2-0.9) 08/01/21 09:55 Eos # (Auto) 0.0 10^3/uL (0.0-0.8) 08/01/21 09:55 Baso # (Auto) 0.0 10^3/uL (0.0-0.1) 08/01/21 09:55 Nucleated RBC % (auto) 0 % 08/01/21 09:55 Nucleated RBCs # 0.0 /100WBC 08/01/21 09:55 Sodium 139 mmol/L (136-145) 08/01/21 09:55 Potassium 3.6 mmol/L (3.5-5.1) 08/01/21 09:55 Chloride 103 mmol/L (98-107) 08/01/21 09:55 Carbon Dioxide 25 mmol/L (22-29) 08/01/21 09:55 Anion Gap 14.6 (5-19) 08/01/21 09:55 BUN 9 mg/dL (6-20) 08/01/21 09:55 Creatinine 0.7 mg/dL (0.5-0.9) 08/01/21 09:55 GFR Calculation 102.8 mL/min (90-130) 08/01/21 09:55 Glucose 92 mg/dL (65-115) 08/01/21 09:55 Calculated Osmolality 286 mOsm/kg (285-295) 08/01/21 09:55 Calcium 9.5 mg/dL (8.5-10.5) 08/01/21 09:55 Total Bilirubin 0.3 mg/dL (0.15-1.2) 08/01/21 09:55 AST 14 U/L (0-32) 08/01/21 09:55 ALT 18 U/L (0-33) 08/01/21 09:55 Alkaline Phosphatase 52 IU/L (35-105) 08/01/21 09:55 Total Protein 7.7 g/dL (6.6-8.7) 08/01/21 09:55 Albumin 4.6 g/dL (3.5-5.2) 08/01/21 09:55 Globulin 3.1 g/dL (1.3-4.6) 08/01/21 09:55 Lipase 25 U/L (13-60) 08/01/21 09:55 Urine Color Joan (Yellow) 08/01/21 10:30 Urine Appearance Clear (CLEAR) 08/01/21 10:30 Urine pH 5 (5-7) 08/01/21 10:30 Ur Specific [place] 1.020 (1.005-1.030) 08/01/21 10:30 Urine Protein Neg (Negative) 08/01/21 10:30 Urine Glucose (UA) Norm (Normal) 08/01/21 10:30 Urine Ketones 1+ (Negative) H 08/01/21 10:30 Urine Blood Neg (Negative) 08/01/21 10:30 Urine Nitrate Negative (Negative) 08/01/21 10:30 Urine Bilirubin Neg (Negative) 08/01/21 10:30 Urine Urobilinogen 1 mg/dL (Negative) H 08/01/21 10:30 Ur Leukocyte Esterase 1+ (Negative) H 08/01/21 10:30 Urine RBC 0-4 /hpf (0-2) H 08/01/21 10:30 Urine WBC 0-4 /hpf (0-5) H 08/01/21 10:30 Ur Squamous Epith Cells 0-4 /hpf (0-5) H 08/01/21 10:30 Amorphous Sediment Not Reportable 08/01/21 10:30 Urine Bacteria 1+ /hpf (NONE) H 08/01/21 10:30 Discharge Plan Discharge Patient Disposition: Home Clinical Impression: Decrease in appetite, Decreased urine output Condition: Stable Prescriptions: No Action buspirone 15 mg Tablet 15 mg PO TID 0RF risperidone 0.5 mg Tablet,Disintegrating 0.5 mg PO BID PRN (Reason: Agitation and Aggression) 0RF sodium phosphates 19-7 gram/118 mL Enema 133 ml DC DAILY PRN (Reason: Constipation) 0RF doxycycline hyclate 100 mg Capsule 100 mg PO BID 0RF Rx Instructions: Started on 08/16/2019 and to continue for 21 days then stop oxcarbazepine 300 mg/5 mL (60 mg/mL) Suspension 600 mg PO BID 0RF lamotrigine 150 mg Tablet 150 mg PO BID 0RF vortioxetine 10 mg Tablet 10 mg PO DAILY 0RF lactulose 10 gram/15 mL Solution 15 ml PO QID PRN (Reason: Constipation) 0RF ClearLax 17 gram/dose Powder 17 g PO DAILY 0RF Cyclafem 135 (28) 1-35 mg-mcg Tablet 1 tab PO DAILY 0RF Rx Instructions: Do not take Placebo dose ondansetron 8 mg Tablet,Disintegrating 8 mg PO Q8H PRN (Reason: Nausea, Vomiting) 0RF naltrexone 50 mg Tablet 50 mg PO TID 0RF paliperidone 9 mg tablet extended release 24hr 9 mg PO DAILY 0RF lubiprostone 8 mcg Capsule 8 mcg PO BID 0RF Rx Instructions: Take with meals Deplin (algal oil) 15-90.314 mg Capsule 1 cap PO DAILY 0RF scopolamine base 1 mg over 3 days Patch 3 Day 1 patch TRANSDERMAL Q3D 0RF docusate sodium 100 mg Capsule 100 mg PO BID 0RF Diastat 2.5 mg Kit 10 mg DC Q12H PRN (Reason: Seizures) 0RF Rx Instructions: 10mg rectally if seizure persists for longer than 5 minutes cetirizine 10 mg Tablet 10 mg PO DAILY PRN (Reason: Rhinitis) 0RF Midol Complete 500-60-15 mg Tablet 2 tab PO Q6H PRN (Reason: Menstrual Cramping) 0RF Discharge Orders: Discharge ED (Routine); Ordered 08/01/21 Ordered By: Maris Mcdonough Coding Level of Care Code ED Asp Net Mvc Developer for Chg Fwd Exam Detailed
[2021-08-01 09:39] VITALS: BP 114/74; PULSE 109; RESP 14; TEMP 36.6; O2SAT 97; BMI 18.8
[2021-08-01 09:44] VITALS: PULSE 116; O2SAT 98
[2021-08-01] MEDS: sodium chloride 0.9% 1,000 ML 999 ML IV (10:01)
[2021-08-01 10:02] LABS: Basophils % 0.3 %; Eosinophils % 0.3 %; Hematocrit 33.3 % (37.0-47.0); Hemoglobin 11.5 g/dL (11.5-15.3); Lymphocytes # 1.2 10^3/uL (0.8-4.8); Lymphocytes % 39.5 %; Mean Corpuscular HGB Conc 34.5 g/dL (30.0-36.0); Mean Corpuscular Hemoglobin 31.3 pg (28.0-34.0); Mean Corpuscular Volume 90.5 fl (81-99); Mean Platelet Volume 9.4 fL (7.4-10.4); Monocytes # 0.2 10^3/uL (0.2-0.9); Monocytes % 5.6 %; Neutrophils # 1.66 10^3/uL (1.8-7.7); Neutrophils % 54.3 %; Nucleated Red Blood Cells % 0 %; Platelet Count 298 10^3/cmm (130-400); Red Blood Count 3.68 10^6/uL (4.1-5.3); Red Cell Distribution Width 12.8 % (12.1-15.1); White Blood Count 3.1 10^3/uL (4.0-10.0)
[2021-08-01 10:14] VITALS: BP 114/74; PULSE 101; O2SAT 98
[2021-08-01 10:59] LABS: Alanine Aminotransferase 18 U/L (0-33); Albumin Level 4.6 g/dL (3.5-5.2); Alkaline Phosphatase 52 IU/L (35-105); Anion Gap 14.6 (5-19); Aspartate Amino Transferase 14 U/L (0-32); Blood Urea Nitrogen 9 mg/dL (6-20); Calcium 9.5 mg/dL (8.5-10.5); Carbon Dioxide 25 mmol/L (22-29); Chloride 103 mmol/L (98-107); Globulin 3.1 g/dL (1.3-4.6); Glomerular Filtration Rate 102.8 mL/min (90-130); Glucose 92 mg/dL (65-115); Lipase 25 U/L (13-60); Osmolality Calculated 286 mOsm/kg (285-295); Potassium 3.6 mmol/L (3.5-5.1); Sodium 139 mmol/L (136-145); Total Bilirubin 0.3 mg/dL (0.15-1.2); Total Protein 7.7 g/dL (6.6-8.7)
[2021-08-01 11:06] LABS: Add Urine Microscopic? YES; Bilirubin Urine Neg (Negative); Blood Urine Neg (Negative); Glucose Urine UA Norm (Normal); Ketones Urine 1+ (Negative); Leukocyte Esterase Urine 1+ (Negative); Nitrate Urine Negative (Negative); Protein Urine Neg (Negative); RBC Urine 0-4 /hpf (0-2); Squamous Epithelial Cell Urine 0-4 /hpf (0-5); Urine Appearance Clear (CLEAR); Urine Color Amber (Yellow); Urobilinogen Urine 1 mg/dL (Negative); WBC Urine 0-4 /hpf (0-5); pH Urine 5 (5-7)
[2021-08-01 11:07] LABS: Add Urine Culture? No; Bacteria Urine 1+ /hpf
[2021-08-01 12:04] VITALS: BP 117/93; PULSE 93; RESP 14; O2SAT 98
[2021-08-01 12:05] VITALS: BP 117/93; PULSE 93; RESP 14; O2SAT 98
== END 2021-08-01 12:07 | disposition home or self-care (01) ==
PROVIDERS: Emergency Provider Physician Assistant
DX: R63.0 Anorexia (principal); Z68.1 Body mass index [BMI] 19.9 or less, adult; R34 Anuria and oliguria; R11.2 Nausea with vomiting, unspecified; R62.50 Unspecified lack of expected normal physiological development in childhood; Z87.820 Personal history of traumatic brain injury
CPT/HCPCS: 80053; 81001; 83690; 85025; 96360; 99284; J7030

== ENCOUNTER 2021-08-23 07:02 | Day surgery (SDC) | payer OTHER, MEDICAID, SELFPAY ==
[2021-08-16 11:08] VITALS: BMI 18.8
[2021-08-23] VITALS (7 sets, daily range): BP systolic 90–145; BP diastolic 65–84; PULSE 107–115; RESP 14–26; TEMP 36.2–36.5; O2SAT 95–99
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
--- NOTE | 2021-08-23 08:18 | P.HP_ITS ---
Same Day Surgery H&P Indication for Procedure/HPI DATE OF PROCEDURE: August 23, 2021 CHIEF COMPLAINT/INDICATIONFOR SURGICAL PROCEDURE: cp for PEG PREOP DIAGNOSIS: cp, poor po intake PLANNED PROCEDURE: Operation Date: 08/23/21 08:50 Proposed Procedures p PEG Tube Insertion(Not Applicable) - Scott Luna MD Medications/Allergies* Home Medications Medication Instructions Recorded Confirmed Type jumaejlcvnhjl-joirmkym-fkycyepwgj 2 tab PO Q6H PRN 09/03/19 08/16/21 History 500 mg-60 mg-15 mg tablet (Midol Complete) buspirone 15 mg tablet 15 mg PO TID 09/03/19 08/16/21 History cetirizine 10 mg tablet 10 mg PO DAILY PRN 09/03/19 08/16/21 History docusate sodium 100 mg capsule 100 mg PO BID 09/03/19 08/16/21 History doxycycline hyclate 100 mg capsule 100 mg PO BID 09/03/19 08/16/21 History lactulose 10 gram/15 mL oral 15 ml PO QID PRN 09/03/19 08/16/21 History solution lamotrigine 150 mg tablet 150 mg PO BID 09/03/19 08/16/21 History levomefolate 15 mg-algal oil 1 cap PO DAILY 09/03/19 08/16/21 History 90.314 mg capsule (Deplin (algal oil)) lubiprostone 8 mcg capsule 8 mcg PO BID 09/03/19 08/16/21 History naltrexone 50 mg tablet 50 mg PO TID 09/03/19 08/16/21 History norethindrone 1 mg-ethinyl 1 tab PO DAILY 09/03/19 08/16/21 History estradiol 35 mcg tablet (Cyclafem) ondansetron 8 mg disintegrating 8 mg PO Q8H PRN 09/03/19 08/16/21 History tablet oxcarbazepine 300 mg/5 mL (60 600 mg PO BID 09/03/19 08/16/21 History mg/mL) oral suspension paliperidone 9 mg tablet,extended 9 mg PO DAILY 09/03/19 08/16/21 History release 24 hr polyethylene glycol 3350 17 17 g PO DAILY 09/03/19 08/16/21 History gram/dose oral powder (ClearLax) risperidone 0.5 mg disintegrating 0.5 mg PO BID PRN 09/03/19 08/16/21 History tablet scopolamine base 1 mg over 3 days 1 patch TRANSDERMAL Q3D 09/03/19 08/16/21 History transdermal patch sodium phosphates 19 gram-[address] DAILY PRN 09/03/19 08/16/21 History gram/118 mL enema vortioxetine 10 mg tablet 10 mg PO DAILY 09/03/19 08/16/21 History Allergies/Adverse Reactions Allergy/AdvReac Type Severity Reaction Status Date / Time carbamazepine Allergy Unknown Verified 08/10/21 09:24 lorazepam [From Ativan] Allergy Unknown Verified 08/16/21 11:06 sulfamethoxazole Allergy ALGY-Hives Verified 08/10/21 09:24 [From Bactrim] trimethoprim [From Bactrim] Allergy ALGY-Hives Verified 08/10/21 09:24 Pertinent History/Comorbid Conditions* Medical History (Updated 08/09/21 @ 00:01 by ) Developmental delay Seizures Traumatic brain injury Surgical History (Updated 09/03/19 @ 09:43 by Margaret Barlow DO) History of laparoscopic cholecystectomy Social History Smoking and tobacco status: never smoked Pertinent Exam Findings alert, oriented x 3 and regular rate & rhythm Recommendations Surgery/Procedure today Coding Level of Care Code Acute Learning Coordinator for Nirav Armstrong
--- NOTE | 2021-08-23 09:09 | PM.OP ---
Operative Report Date of procedure: August 23, 2021 Pre-op diagnosis: Preop Diagnosis cp, poor po intake Procedure: The patient was taken to the Operating Room and was placed under GA after IV antibiotic had been administered. A bite block was placed and gastroscope was introduced and advanced up to the stomach and the first portion of the duodenum. There were no abnormalities noted in the esophagus, stomach and duodenum. The site for the planned PEG was confirmed in the left upper quadrant with transillumination using gastroscope noted through the abdominal wall and indentation of the abdominal wall noted on the gastroscope. This site was marked. An 11-blade was used to make a stab incision. An introducer needle was passed through the abdominal wall into the gastric lumen and the needle removed and the needle removed and the sheath left behind. A guidewire was passed through the introducer needle into the gastric lumen and grasped with a snare attached to the gastroscope. The gastroscope was withdrawn along with the guidewire, which was attached to the 20-[place] EndoVive PEG tube. The guidewire was then pulled through the abdominal wall along with the PEG through the mouth into the gastric lumen until the inner disc was noted to stand against the gastric wall. The gastroscope was reintroduced to confirm good position. The outer disc was then attached and the two way valve was fixed to the PEG tube. The outer disc was noted to be at 3 centimeters at the skin level. Sterile dressing and abdominal binder was placed. The patient was stable throughout the procedure.
--- NOTE | 2021-08-23 09:17 | SUR.PHASEI ---
patient into pacu asleep. on room air with sats of 98%. no pain per faces. dressing dry and intact, abdominal binder in place.
--- NOTE | 2021-08-23 09:33 | SUR.PHASEI ---
patient taken to ops, report called to ray. patient appropriate for condition, mother in room on arrival to ops. no pain per faces.
--- NOTE | 2021-08-23 09:57 | SUR.OPER ---
PER DR MCKEON 275MG OF KETAMINE WAS WASTED.
--- NOTE | 2021-08-23 16:35 | ANE.PACU2 ---
Inpatient post-anesthesia follow up: Airway intact: Yes Vital signs: Temperature 97.1 F Pulse Rate 107 Respiratory Rate 21 Blood Pressure 145/84 Pulse Oximetry 98 Oxygen Delivery Me thod Room Air Oxygen Flow Rate Fraction of Inspir ed Oxygen Hydration adequate: Yes Nausea and vomiting: No Pain level: 1 Mental status: Baseline
== END 2021-08-23 10:05 | disposition home or self-care (01) ==
PROVIDERS: Visit Provider Surgery
PROC: 0DH63UZ Insertion of Feeding Device into Stomach, Percutaneous Approach (ICD-10-PCS; CPT 43246; 2021-08-23 08:40)
DX: R63.8 Other symptoms and signs concerning food and fluid intake (principal)
CPT/HCPCS: 43246; J0330; J2405; J2704; J3490

== ENCOUNTER 2021-08-30 14:07 | Emergency (ER) | payer OTHER, MEDICAID, SELFPAY ==
[2021-08-30 14:18] VITALS: BP 115/68; PULSE 119; RESP 18; TEMP 36.8; O2SAT 98
[2021-08-30 14:21] VITALS: BP 115/68; PULSE 118; RESP 18; TEMP 36.8; O2SAT 98
--- NOTE | 2021-08-30 15:58 | W.ED.ABDPA2 ---
HPI - Abdominal Pain General: Chief Complaint: Abdominal Pain Stated Complaint: Discharge from feeding port Time Seen by Provider: 08/30/21 15:52 Limitations: other History of Present Illness: Ms Francisco is a 26-year-old with complex past medical history including traumatic brain injury presenting to the emergency department due to postoperative concern. On 08/23 she underwent PEG tube placement with Dr. Luna. Initially she seemed to be doing well after the procedure however has not been to need to have increased pain. She has tried Motrin and Tylenol without significant improvement. There does appear to be increased discomfort with flushing however no difficulty with flushing or using G-tube. They have noticed increased drainage which is thick and elena appearing. History is limited by patient's baseline mental status. Onset (ago): day(s) Severity: moderate Review of Systems General: Reports: ROS unobtainable due to medical condition and ROS unobtainable due to mental status PFSH ED PFSH: Medical History Developmental delay Seizures Traumatic brain injury Surgical History History of laparoscopic cholecystectomy S/P percutaneous endoscopic gastrostomy (PEG) tube placement (08/23/21) Social History Smoking and tobacco status: never smoked Physical Exam Const: COMMON NORMALS: alert GENERAL APPEARANCE: well developed HENMT: COMMON NORMALS: normocephalic and atraumatic HEAD & SCALP: normocephalic and atraumatic Eye: COMMON NORMALS: conjunctivae normal CONJUNCTIVA: Yes conjunctivae normal SCLERA: sclerae normal Neck/C-Spine: COMMON NORMALS: supple GENERAL: Yes trachea midline Resp: COMMON NORMALS: normal respiratory effort and clear to auscultation bilaterally AUSCULTATION: clear to auscultation bilaterally Cardio: COMMON NORMALS: regular rhythm RATE: tachycardic RHYTHM: regular rhythm GI: COMMON NORMALS: Soft to palpation PALPATION: Yes Soft to palpation, No Firmness to palpation present (GI), Yes Tenderness to palpation present (GI), No Guarding due to palpation present (GI) and No Rigid due to palpation OTHER: G-tube appears in place. There is elena thick discharge on bandaging. No active bleeding noted. Extremity: GENERAL: Yes normal exam except as noted and No edema Neuro: COMMON NORMALS: moves all extremities SENSORIUM/ORIENTATION: Yes alert Procedures Procedural Sedation ASA Class: II Preparation: quality assurance monitor final applied, pulse oximeter, supplemental O2 applied, suction/airway equipment at bedside and IV secured Ketamine: IM Ketamine dose (mg): 250 Patient Tolerated Procedure: well and no complications Complications: none Course ED course: - Patient was seen and evaluated by me at bedside - Patient placed on cardiac monitors, IV access obtained - Initial evaluation notable for exam as above. Limited history secondary to patient's baseline. - Analgesia given - Labs and xrays personally interpreted by me - Labs notable for no leukocytosis. Normal hemoglobin. Metabolic panel without acute derangement. - Given patient's clinical presentation as well as and in the context of known history of difficulty tolerating CT scan patient will require procedural sedation. Informed consent obtained from patient's mother. - Ketamine given and desired therapeutic effect achieved. Patient tolerated procedural sedation well without complication. - Imaging notable for Thickening and enlargement of the left abdominis rectus muscles around PEG tube. - Upon serial reexamination after treatment the patient was improved - Based on patient history, evaluation, and testing as interpreted the most likely cause of the patient's condition is mild cellulitis versus hematoma postoperatively resulting in pain. - The results of ED evaluation were discussed with the patient's parent including prescriptions and/or symptomatic cares (if applicable) including appropriate and responsible use, followup plan, and return precautions. The patient's parent verbalized understanding and felt safe for discharge. - Patient discharged in satisfactory condition. Note: Click bubbles or prepopulated downey in note writing are used for assistance with data collection and billing and are inherently more limited than narrative and other text portions of this note. Please use narrative for additional clinical history and defer to narrative/free test for any case of contradictory information. If information appears in only free text or click bubble it should be considered present or absent as reported. Please contact note senior medical writer for clarifications of clinical information or contradictory information. MDM is a brief summary, contradictory or erroneous seeming information should be clarified and full note should be reviewed. Vital Signs: Vital signs: Vital Signs Temperature 98.2 F 08/30/21 16:21 Pulse Rate 100 08/30/21 18:00 Respiratory Rate 18 08/30/21 18:00 Blood Pressure 115/68 08/30/21 14:21 Pulse Oximetry 98 08/30/21 18:00 MDM - Abdominal Pain Medical Decision Making 26-year-old lady with complex past medical history of cerebral palsy presenting with postoperative concern after G-tube placement. Mild amount of thick discharge around G-tube. No evidence of leakage of gastric contents. Given history patient required procedural sedation for CT which went well without complication. CT notable for thickening and enlargement of abdominis rectus muscle. No drainable abscess. Given description of drainage patient will be treated in the outpatient setting for mild Cellulitis. Satisfactory for outpatient management with strict return precautions. Medical Records I reviewed the patient's medical records. Lab Data I reviewed the patient's lab results. : 08/30/21 16:11 08/30/21 16:11 Labs/Radiology: Radiology Impressions Abdomen/Pelvis CT 08/30/21 16:44 IMPRESSION: 1. Peg tube with retention disc in the anterior mid stomach. 2. Thickening and enlargement of the left abdominus rectus muscle surrounding the PEG tube. This could represent a hematoma. Infection cannot be excluded but there is no enhancing fluid collection or gas to suggest a drainable abscess or visible leak. Laboratory Results WBC 5.9 10^3/uL (4.0-10.0) 08/30/21 16:11 RBC 3.89 10^6/uL (4.1-5.3) L 08/30/21 16:11 Hgb 12.1 g/dL (11.5-15.3) 08/30/21 16:11 Hct 35.2 % (37.0-47.0) L 08/30/21 16:11 MCV 90.5 fl (81-99) 08/30/21 16:11 MCH 31.1 pg (28.0-34.0) 08/30/21 16:11 MCHC 34.4 g/dL (30.0-36.0) 08/30/21 16:11 RDW 12.7 % (12.1-15.1) 08/30/21 16:11 Plt Count 329 10^3/cmm (130-400) 08/30/21 16:11 MPV 9.3 fL (7.4-10.4) 08/30/21 16:11 Neut % (Auto) 60.6 % 08/30/21 16:11 Lymph % (Auto) 34.0 % 08/30/21 16:11 [place] % (Auto) 4.1 % 08/30/21 16:11 Eos % (Auto) 0.7 % 08/30/21 16:11 Baso % (Auto) 0.3 % 08/30/21 16:11 Neut # (Auto) 3.56 10^3/uL (1.8-7.7) 08/30/21 16:11 Lymph # (Auto) 2.0 10^3/uL (0.8-4.8) 08/30/21 16:11 [place] # (Auto) 0.2 10^3/uL (0.2-0.9) 08/30/21 16:11 Eos # (Auto) 0.0 10^3/uL (0.0-0.8) 08/30/21 16:11 Baso # (Auto) 0.0 10^3/uL (0.0-0.1) 08/30/21 16:11 Nucleated RBC % (auto) 0 % 08/30/21 16:11 Nucleated RBCs # 0.0 /100WBC 08/30/21 16:11 Sodium 140 mmol/L (136-145) 08/30/21 16:11 Potassium 3.9 mmol/L (3.5-5.1) 08/30/21 16:11 Chloride 104 mmol/L (98-107) 08/30/21 16:11 Carbon Dioxide 24 mmol/L (22-29) 08/30/21 16:11 Anion Gap 15.9 (5-19) 08/30/21 16:11 BUN 11 mg/dL (6-20) 08/30/21 16:11 Creatinine 0.6 mg/dL (0.5-0.9) 08/30/21 16:11 GFR Calculation 122.8 mL/min (90-130) 08/30/21 16:11 Glucose 98 mg/dL (65-115) 08/30/21 16:11 Calculated Osmolality 289 mOsm/kg (285-295) 08/30/21 16:11 Lactic Acid Cancelled 08/30/21 16:11 Calcium 9.3 mg/dL (8.5-10.5) 08/30/21 16:11 Total Bilirubin 0.2 mg/dL (0.15-1.2) 08/30/21 16:11 AST 10 U/L (0-32) 08/30/21 16:11 ALT 12 U/L (0-33) 08/30/21 16:11 Alkaline Phosphatase 72 IU/L (35-105) 08/30/21 16:11 Total Protein 8.0 g/dL (6.6-8.7) 08/30/21 16:11 Albumin 4.5 g/dL (3.5-5.2) 08/30/21 16:11 Globulin 3.5 g/dL (1.3-4.6) 08/30/21 16:11 Discharge Plan Discharge Patient Disposition: Home Clinical Impression: Skin infection at gastrostomy tube site, S/P percutaneous endoscopic gastrostomy (PEG) tube placement Condition: Stable Prescriptions: No Action oxycodone 5 mg/5 mL solution 2.5 mg PO Q4H PRN (Reason: pain) 10 Days Qty: 100 0RF buspirone 15 mg Tablet 15 mg PO TID 0RF risperidone 0.5 mg Tablet,Disintegrating 0.5 mg PO BID PRN (Reason: Agitation and Aggression) 0RF sodium phosphates 19-7 gram/118 mL Enema 133 ml [place] DAILY PRN (Reason: Constipation) 0RF oxcarbazepine 300 mg/5 mL (60 mg/mL) Suspension 600 mg PO BID 0RF lamotrigine 150 mg Tablet 150 mg PO BID 0RF vortioxetine 10 mg Tablet 10 mg PO DAILY 0RF lactulose 10 gram/15 mL Solution 15 ml PO BID 0RF polyethylene glycol 3350 [ClearLax] 17 gram/dose Powder 17 g PO DAILY PRN (Reason: Constipation) 0RF Nortrel 1/35 (28) 1-35 mg-mcg Tablet 1 tab PO DAILY 0RF Rx Instructions: Do not take Placebo dose ondansetron 8 mg Tablet,Disintegrating 8 mg PO Q8H PRN (Reason: Nausea, Vomiting) 0RF naltrexone 50 mg Tablet 50 mg PO TID 0RF paliperidone 9 mg tablet extended release 24hr 9 mg PO DAILY 0RF scopolamine base 1 mg over 3 days Patch 3 Day 1 patch TRANSDERMAL Q3D PRN (Reason: Nausea) 0RF cetirizine 10 mg Tablet 10 mg PO DAILY PRN (Reason: Rhinitis) 0RF Midol Complete 500-60-15 mg Tablet 2 tab PO Q6H PRN (Reason: Menstrual Cramping) 0RF Senna-S 8.6-50 mg Tablet 1 tab-cap PO BID 0RF L-Methylfolate 15 mg Tablet 15 mg PO DAILY 0RF Discharge Orders: Discharge ED (Routine); Ordered 08/30/21 Ordered By: Salvatore Borden Discharge Diet: Usual diet Discharge Activity: Increase activity as tolerated Patient Instructions: How to Use and Care for Your PEG Tube (ED), Cellulitis (ED), PEG Tube Insertion (DC), Opioid Safety Activity Restrictions/Additional Instructions: Thank you for visiting the emergency department. You were seen and evaluated for concern over drainage surrounding recently inserted PEG tube. There does appear to be mild superficial infection which can be treated with antibiotics. Please follow-up with your operating surgeon and primary care provider Please return to the emergency department for overall worsening, uncontrolled pain, or anything else that you are concerned about a feel needs emergency department evaluation. Coding Level of Care Code ED Yoga Coordinator for Nirav Fwmassimo Exam Comprehensive
[2021-08-30 16:16] VITALS: RESP 18
[2021-08-30] MEDS: morphine 4 mg/mL SDV 1 mL IVP (16:16)
[2021-08-30 16:21] VITALS: PULSE 110; RESP 18; TEMP 36.8; O2SAT 98
--- NOTE | 2021-08-30 16:44 | CTR_ITS ---
PROCEDURE INFORMATION: Exam: CT Abdomen And Pelvis With Contrast Exam date and time: 08/30/2021 6:49 PM Age: 26 years old Clinical indication: Abdominal pain; Additional info: Increased pain and drainage post peg tube placement 08/23 TECHNIQUE: Imaging protocol: Computed tomography of the abdomen and pelvis with contrast. Radiation optimization: All CT scans at this facility use at least one of these dose optimization techniques: automated exposure control; mA and/or kV adjustment per patient size (includes targeted exams where dose is matched to clinical indication); or iterative reconstruction. Contrast material: OMNIPAQUE 350; Contrast volume: 90 ml; Contrast route: INTRAVENOUS (IV); COMPARISON: CT abdomen pelvis w con* [id number] 09/02/2019 11:38 PM RADIATION DOSE METRICS: Total DLP (mGy-cm): 906.66 FINDINGS: Tubes, catheters and devices: Peg tube with mushroom shaped retention disc in the anterior mid stomach. Liver: Normal. No mass. Gallbladder and bile ducts: Cholecystectomy. The bile ducts are normal. Pancreas: Normal. No ductal dilation. Spleen: Normal. No splenomegaly. Adrenal glands: Normal. No mass. Kidneys and ureters: Normal. No hydronephrosis. Stomach and bowel: Unremarkable. No obstruction. No mucosal thickening. Appendix: The appendix is not visualized. No secondary signs of appendicitis. Intraperitoneal space: Mild fluid in the cul-de-sac and right adnexa. No free peritoneal air. Vasculature: Unremarkable. No abdominal aortic aneurysm. Lymph nodes: Unremarkable. No enlarged lymph nodes. Urinary bladder: Unremarkable as visualized. Reproductive: The uterus and ovaries are unremarkable. Bones/joints: Thoracolumbar curvature. No fracture. Soft tissues: There is thickening of the left abdominus rectus muscle which is transverse to by the PEG tube. No soft tissue gas or enhancing soft tissue fluid collection identified. CT/CT abdomen pelvis w con* [id number] IMPRESSION: 1. Peg tube with retention disc in the anterior mid stomach. 2. Thickening and enlargement of the left abdominus rectus muscle surrounding the PEG tube. This could represent a hematoma. Infection cannot be excluded but there is no enhancing fluid collection or gas to suggest a drainable abscess or visible leak.
[2021-08-30 16:46] LABS: Basophils % 0.3 %; Eosinophils % 0.7 %; Hematocrit 35.2 % (37.0-47.0); Hemoglobin 12.1 g/dL (11.5-15.3); Mean Corpuscular HGB Conc 34.4 g/dL (30.0-36.0); Mean Corpuscular Hemoglobin 31.1 pg (28.0-34.0); Mean Corpuscular Volume 90.5 fl (81-99); Mean Platelet Volume 9.3 fL (7.4-10.4); Monocytes # 0.2 10^3/uL (0.2-0.9); Monocytes % 4.1 %; Neutrophils # 3.56 10^3/uL (1.8-7.7); Neutrophils % 60.6 %; Nucleated Red Blood Cells % 0 %; Platelet Count 329 10^3/cmm (130-400); Red Blood Count 3.89 10^6/uL (4.1-5.3); Red Cell Distribution Width 12.7 % (12.1-15.1); White Blood Count 5.9 10^3/uL (4.0-10.0)
[2021-08-30 17:14] LABS: Alanine Aminotransferase 12 U/L (0-33); Albumin Level 4.5 g/dL (3.5-5.2); Alkaline Phosphatase 72 IU/L (35-105); Anion Gap 15.9 (5-19); Aspartate Amino Transferase 10 U/L (0-32); Blood Urea Nitrogen 11 mg/dL (6-20); Calcium 9.3 mg/dL (8.5-10.5); Carbon Dioxide 24 mmol/L (22-29); Chloride 104 mmol/L (98-107); Globulin 3.5 g/dL (1.3-4.6); Glomerular Filtration Rate 122.8 mL/min (90-130); Glucose 98 mg/dL (65-115); Osmolality Calculated 289 mOsm/kg (285-295); Potassium 3.9 mmol/L (3.5-5.1); Sodium 140 mmol/L (136-145); Total Bilirubin 0.2 mg/dL (0.15-1.2)
[2021-08-30 18:00] VITALS: PULSE 100; RESP 18; O2SAT 98
--- NOTE | 2021-08-30 18:54 | PC.NURSE ---
Procedural Sedation Given 250mg IM ketamine in left thigh at 1833. Resp Therapists in room, Dr. Borden in room, charge nurse ONIEL Fernandez in room with this nurse. Pt tolerated well and is nsr on cardiac monitoring, 97% room air, pulse 110s, bp 108/76. Pt was crying after injection but began to fall asleep and settle at 1845. Mother and physician has signed consent and in chart prior to procedure.
[2021-08-30] MEDS: iohexol 350 mg/mL 100 mL Btl IV (19:01)
[2021-08-30] MEDS: oxyCODONE 5 mg IR Tab/Cap 2.5 MG PEG-TUBE (20:20)
== END 2021-08-30 20:32 | disposition home or self-care (01) ==
PROVIDERS: Physician Assistant; Emergency Provider Emergency Medicine
DX: K94.22 Gastrostomy infection (principal); Z87.820 Personal history of traumatic brain injury
CPT/HCPCS: 74177; 80053; 85025; 87040; 96372; 96374; 99152; 99285; J2270; J3490; Q9967

== ENCOUNTER 2022-05-18 21:38 | Emergency (ER) | payer MEDICAID, SELFPAY ==
[2022-05-18 21:47] VITALS: BP 139/80; PULSE 124; RESP 18; TEMP 35.9; O2SAT 100; BMI 19.9
--- NOTE | 2022-05-18 22:10 | W.ED.GENADLT ---
HPI - General Adult General: Chief complaint: General Medical Stated complaint: bleeding around feeding tube Time Seen by Provider: 05/18/22 22:10 History of Present Illness: 26-year-old female with history of seizures, intellectual disability, and traumatic brain injury had a PEG tube placed 1 year ago. Mother reports that about a week ago the tube had got caught and pulled accidentally. Since then mother has noticed bleeding at time around the PEG tube site. No blood has been noted within the tube. Patient is acting normal for self. Patient is nonverbal but does scream loudly at times. Associated symptoms: Deny chest pain, dyspnea, nausea or vomiting Review of Systems General: Reports: 10 or more systems reviewed and unremarkable except in HPI and below Card: Denies: chest pain Resp: Denies: dyspnea GI: Denies: nausea, vomiting, diarrhea or constipation : Denies: difficulty voiding Skin/Breast: Reports: erythema (At PEG tube site) [facility] ED PFSH: Medical History Developmental delay Seizures Traumatic brain injury Surgical History History of laparoscopic cholecystectomy S/P percutaneous endoscopic gastrostomy (PEG) tube placement (08/23/21) Social History Smoking and tobacco status: never smoked Physical Exam Const: COMMON NORMALS: alert HENMT: COMMON NORMALS: normocephalic HEAD & SCALP: normocephalic MOUTH: Normal oral and palatal mucosa present Neck/C-Spine: COMMON NORMALS: full ROM Resp: COMMON NORMALS: normal respiratory effort and clear to auscultation bilaterally AUSCULTATION: clear to auscultation bilaterally Cardio: COMMON NORMALS: regular rate and regular rhythm RATE: regular rate RHYTHM: regular rhythm GI: INSPECTION: Yes normal to inspection, Yes GI erythema present (Around ostomy site minimal) and Yes GI ostomy present (G-tube) Back/Pelvis: COMMON NORMALS: thoracic and lumbar spine normal to inspection Extremity: COMMON NORMALS: full ROM Neuro: SENSORIUM/ORIENTATION: Yes alert Skin: COMMON NORMALS: turgor normal GENERAL SKIN EXAM: turgor normal Course Vital Signs: Vital signs: Vital Signs Temperature 96.7 F L 05/18/22 21:47 Pulse Rate 124 H 05/18/22 21:47 Respiratory Rate 18 05/18/22 21:47 Blood Pressure 139/80 05/18/22 21:47 Pulse Oximetry 100 05/18/22 21:47 Oxygen Delivery Me thod 05/18/22 21:47 MDM - General Adult Medical Decision Making 26-year-old female brought in today for concerns of blood at the G-tube site. On exam patient has a soft abdomen. Minimal redness around the ostomy site of the G-tube. No blood is noted within the G-tube. Respirations are even lungs are clear to auscultation. Vital signs are unremarkable except for some mild elevation in pulse at 120. Differential diagnosis includes but not limited to gastritis, G-tube malfunction, trauma to ostomy. X-ray was unremarkable. I adjusted the clamp on the PEG tube which prevented movement of the G-tube. Suspect that the tube had been pulled causing some mild trauma to the ostomy which will cause some bleeding. Recommended monitoring for worsening bleeding and fever. Recommend follow-up with surgeon for further evaluation and treatment. Mother reports understanding. Discharge Plan Discharge Patient Disposition: Home Clinical Impression: Malfunction of percutaneous endoscopic gastrostomy (PEG) tube Condition: Stable Prescriptions: No Action oxycodone 5 mg/5 mL solution 2.5 mg PO Q4H PRN (Reason: pain) 10 Days Qty: 100 0RF buspirone 15 mg Tablet 15 mg PO TID risperidone 0.5 mg Tablet,Disintegrating 0.5 mg PO BID PRN (Reason: Agitation and Aggression) sodium phosphates 19-7 gram/118 mL Enema 133 ml [place] DAILY PRN (Reason: Constipation) oxcarbazepine 300 mg/5 mL (60 mg/mL) Suspension 600 mg PO BID lamotrigine 150 mg Tablet 150 mg PO BID vortioxetine 10 mg Tablet 10 mg PO DAILY lactulose 10 gram/15 mL Solution 15 ml PO BID polyethylene glycol 3350 [ClearLax] 17 gram/dose Powder 17 g PO DAILY PRN (Reason: Constipation) Nortrel () 1-35 mg-mcg Tablet 1 tab PO DAILY Rx Instructions: Do not take Placebo dose ondansetron 8 mg Tablet,Disintegrating 8 mg PO Q8H PRN (Reason: Nausea, Vomiting) naltrexone 50 mg Tablet 50 mg PO TID paliperidone 9 mg tablet extended release 24hr 9 mg PO DAILY scopolamine base 1 mg over 3 days Patch 3 Day 1 patch TRANSDERMAL Q3D PRN (Reason: Nausea) cetirizine 10 mg Tablet 10 mg PO DAILY PRN (Reason: Rhinitis) Midol Complete 500-60-15 mg Tablet 2 tab PO Q6H PRN (Reason: Menstrual Cramping) Senna-S 8.6-50 mg Tablet 1 tab-cap PO BID L-Methylfolate 15 mg Tablet 15 mg PO DAILY Discharge Orders: Discharge ED (Routine); Ordered 05/18/22 Ordered By: Miles Diggs Referrals: Jeremy Serra [Primary Care Provider] - Discharge Diet: Usual diet Discharge Activity: Increase activity as tolerated Patient Instructions: How to Use and Care for Your PEG Tube (ED) Activity Restrictions/Additional Instructions: Home and rest. Continue with routine care. Follow-up with primary care as needed. manager golf will contact you regarding a follow-up appointment with surgeon. Return to ED for worsening symptoms such as fever greater than 100.4, blood in vomit or stool, or uncontrolled pain. Coding Level of Care Code ED Wave Soldering Machine Operator for Nirav Armstrong
--- NOTE | 2022-05-18 22:21 | XRR_ITS ---
PROCEDURE INFORMATION: Exam: XR Abdomen Exam date and time: 05/18/2022 10:37 PM Age: 26 years old Clinical indication: Device placement; Gi device; Prior surgery; Surgery date: 6+ months; Surgery type: Peg tube, appendectomy; Patient HX: Patient's caregiver stated when she showered her she had bleeding from her peg tube. Patient's mother stated this evening after her shower she had bright red blood coming from it and the tube is normally at a 4 but is currently pushed out to a 3. Patient's peg tube is observed to be red and is oozing. Patient's mother stated last August she a hematoma formed after the peg tub was placed. Patient's mother stated they have to keep two pads on her peg tube due oozing. ; Additional info: Peg tube placement TECHNIQUE: Imaging protocol: Radiologic exam of the abdomen. Views: Frontal supine view of the abdomen. 1 View. COMPARISON: CT abdomen pelvis w con* [id number] 08/30/2021 6:49 PM FINDINGS: Tubes, catheters and devices: Percutaneous G-tube in place. Gastrointestinal tract: Mild to moderate retained feces. Bones/joints: Unremarkable. XR/XR abdomen 1V* [id number] IMPRESSION: 1. Percutaneous G-tube in place. 2. Mild to moderate retained feces.
--- NOTE | 2022-05-20 10:27 | DCPLANNER ---
Addendum entered by Kellen Go 06/07/22 08:51: this appointment was rescheduled Addendum entered by Kellen Go 05/22/22 08:11: Patient has a follow up appointment scheduled for May at 2:[address] Mcknight at general surgery. Original Note: data deliverables manager had message to schedule a follow up appointment for patient with general surgery. data deliverables manager sent patients information to the front office staff at general surgery. Patients information will be printed and reviewed. Clinic will call patient with appointment information.
== END 2022-05-18 23:00 | disposition home or self-care (01) ==
PROVIDERS: Emergency Provider Nurse Practitioner Family; PCP Family Medicine
DX: K94.23 Gastrostomy malfunction (principal); Z87.820 Personal history of traumatic brain injury
CPT/HCPCS: 74018; 99283

== ENCOUNTER 2022-05-21 21:15 | Emergency (ER) | payer MEDICAID, SELFPAY ==
[2022-05-21] VITALS (10 sets, daily range): BP systolic 106–141; BP diastolic 72–91; PULSE 88–146; RESP 13–18; TEMP 521.3–970.4; O2SAT 94–99; BMI 20.4
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
--- NOTE | 2022-05-21 21:38 | CTR_ITS ---
PROCEDURE INFORMATION: Exam: CT Abdomen And Pelvis With Contrast Exam date and time: 05/21/2022 10:46 PM Age: 26 years old Clinical indication: Abdominal pain; Acute; Prior surgery; Surgery date: 6+ months; Surgery type: G tube; Patient HX: Prev traumatic brain injury PT had to be sedated for CT; Additional info: Abdominal pain/distention, reports drainage from g tube site TECHNIQUE: Imaging protocol: Computed tomography of the abdomen and pelvis with contrast. Radiation optimization: All CT scans at this facility use at least one of these dose optimization techniques: automated exposure control; mA and/or kV adjustment per patient size (includes targeted exams where dose is matched to clinical indication); or iterative reconstruction. Contrast material: OMNI 350; Contrast volume: 75 ml; Contrast route: INTRAVENOUS (IV); REPORTING DATA: Count of CT and Cardiac NM exams in prior 12 months: This patient has received [address] and 0 known cardiac nuclear medicine studies in the 12 months prior to the current study. COMPARISON: CT abdomen pelvis w con* [id number] 08/30/2021 6:49 PM RADIATION DOSE METRICS: Total DLP (mGy-cm): 369.13 FINDINGS: Tubes, catheters and devices: Percutaneous gastric tube tip in the gastric body. Diaphragm: Small hiatal hernia. Liver: Hepatic steatosis. Gallbladder and bile ducts: Cholecystectomy. Pancreas: Normal. No ductal dilation. Spleen: Normal. No splenomegaly. Adrenal glands: Normal. No mass. Kidneys and ureters: Normal. No hydronephrosis. Stomach and bowel: Prominent fluid in the small bowel without dilation suggestive of an enteritis. Appendix: No evidence of appendicitis. Intraperitoneal space: Unremarkable. No free air. No significant fluid collection. Vasculature: Unremarkable. No abdominal aortic aneurysm. Lymph nodes: Unremarkable. No enlarged lymph nodes. Urinary bladder: Unremarkable as visualized. Reproductive: Unremarkable as visualized. Bones/joints: Unremarkable. No acute fracture. Soft tissues: Unremarkable. CT/CT abdomen pelvis w con* [id number] IMPRESSION: 1. Prominent fluid in the small bowel without dilation suggestive of an enteritis. 2. Percutaneous gastric tube tip in the gastric body, negative for abnormality seen about the percutaneous gastric tube. 3. Small hiatal hernia. 4. Hepatic steatosis. 5. Cholecystectomy.
[2022-05-21 22:11] LABS: Basophils % 0.5 %; Eosinophils # 0.1 10^3/uL (0.0-0.8); Eosinophils % 1.2 %; Hematocrit 39.7 % (37.0-47.0); Hemoglobin 12.9 g/dL (11.5-15.3); Lymphocytes # 3.9 10^3/uL (0.8-4.8); Lymphocytes % 52.5 %; Mean Corpuscular HGB Conc 32.5 g/dL (30.0-36.0); Mean Corpuscular Hemoglobin 30.7 pg (28.0-34.0); Mean Corpuscular Volume 94.5 fl (81-99); Mean Platelet Volume 9.3 fL (7.4-10.4); Monocytes # 0.6 10^3/uL (0.2-0.9); Monocytes % 7.9 %; Neutrophils # 2.77 10^3/uL (1.8-7.7); Neutrophils % 37.8 %; Nucleated Red Blood Cells % 0 %; Platelet Count 357 10^3/cmm (130-400); Red Cell Distribution Width 12.7 % (12.1-15.1); White Blood Count 7.4 10^3/uL (4.0-10.0)
[2022-05-21 22:18] LABS: Alanine Aminotransferase 24 U/L (0-33); Albumin Level 4.5 g/dL (3.5-5.2); Alkaline Phosphatase 82 U/L (35-105); Anion Gap 17.3 (5-19); Aspartate Amino Transferase 22 U/L (0-32); Blood Urea Nitrogen 9 mg/dL (6-20); Calcium 9.2 mg/dL (8.5-10.5); Carbon Dioxide 23 mmol/L (22-29); Chloride 103 mmol/L (98-107); Globulin 3.9 g/dL (1.3-4.6); Glomerular Filtration Rate 102.8 mL/min (90-130); Glucose 96 mg/dL (65-115); Lipase 48 U/L (13-60); Osmolality Calculated 287 mOsm/kg (285-295); Potassium 4.3 mmol/L (3.5-5.1); Sodium 139 mmol/L (136-145); Total Bilirubin 0.2 mg/dL (0.15-1.2); Total Protein 8.4 g/dL (6.6-8.7)
[2022-05-21 22:19] LABS: Lactic Sepsis W/Reflex 2.4 mmol/L (0.5-2.2)
[2022-05-21] MEDS: ondansetron 2 mg/ML SDV 2 mL 4 MG IVP (22:26)
[2022-05-21] MEDS: iohexol 350 mg/mL 500 mL Btl (per mL) IV (22:48)
[2022-05-21] MEDS: ketamine 100 mg/mL Inj 5 mL 75 MG IV (23:05)
[2022-05-21 23:35] LABS: Add Urine Microscopic? YES; Bilirubin Urine Neg (Negative); Blood Urine Neg (Negative); Glucose Urine UA Norm (Normal); Ketones Urine 1+ (Negative); Leukocyte Esterase Urine Negative (Negative); Nitrate Urine Negative (Negative); Protein Urine Trace (Negative); RBC Urine 0-4 /hpf (0-2); Squamous Epithelial Cell Urine 0-4 /hpf (0-5); Urine Appearance Clear (CLEAR); Urine Color Yellow (Yellow); Urobilinogen Urine 1 mg/dL (Negative); pH Urine 5 (5-7)
[2022-05-21 23:36] LABS: Add Urine Culture? No; Bacteria Urine 2+ /hpf
[2022-05-21 23:46] LABS: Reflex Lactate Order REFLEX LACTIC ORDERD
[2022-05-22 00:03] VITALS: BP 105/73
[2022-05-22 00:05] VITALS: BP 110/75
== END 2022-05-22 00:21 | disposition home or self-care (01) ==
PROVIDERS: Emergency Provider Physician Assistant; PCP Family Medicine
DX: K94.29 Other complications of gastrostomy (principal); K52.9 Noninfective gastroenteritis and colitis, unspecified; Z87.820 Personal history of traumatic brain injury
CPT/HCPCS: 74177; 80053; 81001; 83605; 83690; 85025; 94799; 96374; 96375; 99285; J2405; J3490; Q9967